=== PATIENT | female | born 1985 | race Hispanic/Latino ===

== ENCOUNTER 2016-12-18 21:31 | Emergency (ER) | payer BC, OTHER ==
[2016-12-18 21:38] VITALS: BP 122/71; PULSE 99; RESP 16; TEMP 98.2; O2SAT 98
--- NOTE | 2016-12-18 22:34 | ED PDOC ---
HPI: Skin/Bite Injury Time Seen by Provider: 12/18/16 22:05 Chief Complaint (Nursing): Abnormal Skin Integrity Chief Complaint (Provider): Rash - 3 days, mild itchiness Past Medical History Vital Signs: Last Vital Signs Temp 98.2 F 12/18/16 21:36 Pulse 99 H 12/18/16 21:36 Resp 16 12/18/16 21:36 BP 122/71 12/18/16 21:36 Pulse Ox 98 12/18/16 21:36 - Family History Family History: States: Unknown Family Hx - Home Medications Home Medications: Ambulatory Orders Medication Instructions Recorded predniSONE [predniSONE Tab] 20 mg PO DAILY #12 tab 12/18/16 - Allergies Allergies/Adverse Reactions: Allergies Allergy/AdvReac Type Severity Reaction Status Date / Time No Known Allergies Allergy Verified 12/18/16 21:38 - ECG O2 Sat by Pulse Oximetry: 98 Disposition - Clinical Impression Clinical Impression: Heat rash - Patient ED Disposition Is Patient to be Admitted: No Counseled Patient/Family Regarding: Diagnosis, Need For Followup, Rx Given - Disposition Disposition: Routine/Home Disposition Time: 22:34 Condition: STABLE Prescriptions: predniSONE [predniSONE Tab] 20 mg PO DAILY #12 tab Instructions: Acute Rash (ED)
== END 2016-12-18 22:58 | disposition home or self-care (01) ==
LOC: H.ER 21:31
DX: R21 Rash and other nonspecific skin eruption (principal)